=== PATIENT | male | born 1945 | race Caucasian/White ===

== ENCOUNTER → 2021-01-18 11:58 | Outpatient (BNVA) | payer MEDICARE, OTHER, SELFPAY | PROVIDERS: Family Provider Family Medicine; Visit Provider Nurse Practitioner | DX: Z13.6 Encounter for screening for cardiovascular disorders (principal); E55.9 Vitamin D deficiency, unspecified; Z79.899 Other long term (current) drug therapy | CPT/HCPCS: 80053; 80061; 82306; 83721; 84443; 85025 ==

== ENCOUNTER → 2021-04-15 10:53 | Outpatient (BNVA) | payer MEDICARE, OTHER, SELFPAY | PROVIDERS: Family Provider Family Medicine; Visit Provider Nurse Practitioner Family | DX: I49.3 Ventricular premature depolarization (principal); E78.2 Mixed hyperlipidemia | CPT/HCPCS: 80053; 80061; 83721; 84439; 84443 ==

== ENCOUNTER → 2021-07-30 11:02 | Outpatient (BNVA) | payer MEDICARE, OTHER, SELFPAY | PROVIDERS: Family Provider Family Medicine; Visit Provider Nurse Practitioner | DX: E78.2 Mixed hyperlipidemia (principal); Z12.5 Encounter for screening for malignant neoplasm of prostate | CPT/HCPCS: 80053; 84443; G0103 ==

== ENCOUNTER → 2021-08-09 08:29 | Outpatient (BNVA) | payer MEDICARE, OTHER, SELFPAY | PROVIDERS: Family Provider Family Medicine; Visit Provider Nurse Practitioner | DX: R97.20 Elevated prostate specific antigen [PSA] (principal) | CPT/HCPCS: 84153 ==

== ENCOUNTER 2021-10-21 18:37 | Emergency (ER) | payer OTHER, SELFPAY ==
[2021-10-21 19:06] VITALS: BP 181/72; PULSE 70; RESP 16; TEMP 36.9; O2SAT 98; BMI 30.8
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
== END 2021-10-21 21:31 | disposition home or self-care (01) ==
PROVIDERS: Emergency Provider Nurse Practitioner Family
DX: S09.90XA Unspecified injury of head, initial encounter (principal); R07.81 Pleurodynia; V43.52XA Car driver injured in collision with other type car in traffic accident, initial encounter
CPT/HCPCS: 70450; 71101; 72125; 99283

== ENCOUNTER → 2021-12-20 08:13 | Outpatient (BNVA) | payer MEDICARE, OTHER, SELFPAY | PROVIDERS: Visit Provider Internal Medicine Cardiovascular Disease | DX: Z79.899 Other long term (current) drug therapy (principal) | CPT/HCPCS: 80076; 84439; 84443 ==

== ENCOUNTER → 2022-01-24 09:53 | Outpatient (BNVA) | payer MEDICARE, OTHER, SELFPAY | PROVIDERS: Visit Provider Nurse Practitioner | DX: R97.20 Elevated prostate specific antigen [PSA] (principal); E78.2 Mixed hyperlipidemia; Z78.9 Other specified health status; E66.9 Obesity, unspecified | CPT/HCPCS: 80053; 80061; 83721 ==

== ENCOUNTER → 2022-04-13 09:12 | Outpatient (BNVA) | payer MEDICARE, OTHER, SELFPAY | PROVIDERS: Referring Provider Urology; Visit Provider Urology | DX: R97.20 Elevated prostate specific antigen [PSA] (principal) | CPT/HCPCS: 84153 ==

== ENCOUNTER → 2022-05-18 10:36 | Outpatient (BNVA) | payer MEDICARE, OTHER, SELFPAY | PROVIDERS: PCP Nurse Practitioner; Referring Provider Nurse Practitioner; Visit Provider Nurse Practitioner | DX: R42 Dizziness and giddiness (principal) | CPT/HCPCS: 99204 ==

== ENCOUNTER 2022-06-28 09:56 | Outpatient (CLI) | payer MEDICARE, OTHER, SELFPAY ==
--- NOTE | 2022-06-28 11:00 | MR_ITS ---
WS: [id number] MRA CAROTID ARTERIES HISTORY: R42 - Dizziness and giddiness COMPARISON: None available. TECHNIQUE: Noncontrast imaging of the carotid arteries is performed. Right: No occlusions or stenosis involving the mid cervical carotid artery. Bifurcation is intact. Pr oximal and distal carotid arteries are not well visualized. Left: No occlusions or stenosis involving the mid cervical carotid artery. Bifurcation is intact. The proximal and distal carotid arteries are not well visualized. Vertebral Arteries: Patent. No occlusions. MR/MR angio neck wo con [id number] IMPRESSION: 1. Very limited evaluation of the carotid arteries. Noncontrast evaluation per formed. 2. No high-grade cervical carotid artery stenosis or occlusion.
== END 2022-06-28 09:57 | disposition home or self-care (01) ==
LOC: RAD 09:56
PROVIDERS: PCP Nurse Practitioner; Visit Provider Nurse Practitioner
DX: R42 Dizziness and giddiness (principal)
CPT/HCPCS: 70547

== ENCOUNTER 2022-07-05 09:19 | Outpatient (CLI) | payer MEDICARE, OTHER, SELFPAY ==
--- NOTE | 2022-07-05 09:30 | MR_ITS ---
WS: [id number] MRI HEAD WITH CONTRAST TECHNIQUE: Sagittal T1, T2 axial, T2 axial FLAIR, axial susceptibility weighted imaging, axial diffus ion weighted images, and coronal T2 images were obtained. Pre and post-T1 axial and post T1 coronal i mages. ADC and FSPGR images. CLINICAL INFORMATION: R42 - Dizziness and giddiness COMPARISON: CT head FINDINGS: No evidence of restricted diffusion to suggest acute ischemia. Ventricular system and basal cisterns are patent. Mild small vessel changes. Mild parenchymal volume loss. Normal posterior fossa. Normal v ascular flow voids at the skull base. No extra-axial fluid collections. No evidence of mass or mass e ffect. Several tiny chronic lacunar infarcts in the RIGHT caudate. Paranasal sinuses and mastoid air cells a re well aerated. Normal posterior nasopharynx. Normal parapharyngeal fat. No hemosiderin on the susce ptibly weighted images. Optic chiasm and pituitary infundibulum. No abnormal gadolinium enhancement. MR/MR head wo/w con [id number] IMPRESSION: 1. No evidence of restricted diffusion to suggest acute ischemia. 2. Mild small vessel changes with mild parenchymal volume loss. 3. Tiny chronic lacunar infarcts in the RIGHT caudate. 4. No hemosiderin on susceptibly weighted images. 5. No abnormal gadolinium enhancement.
--- NOTE | 2022-07-05 10:15 | MR_ITS ---
WS: [id number] MRA HEAD TECHNIQUE: Axial 3-D TOF images obtained with axial images and axial, sagittal, and coronal 2-D refor matted images. CLINICAL INFORMATION: R42 - Dizziness and giddines COMPARISON: CT head 6 FINDINGS: Distal vertebral arteries are patent. Basilar artery is patent. Normal vascularity to the [employer] territo ry bilaterally. Both ICAs are patent at the skull base. Normal vascularity to the SUZANNE and MCA territories bilaterally . No evidence of high-grade stenosis or aneurysm. Small LEFT A1 segment. MR/MR angio head con [id number] IMPRESSION: Normal intracranial MRA.
[2022-07-05] MEDS: gadobenate dimeglumine 20 mL vial IV (10:58)
== END 2022-07-05 09:20 | disposition home or self-care (01) ==
LOC: RAD 09:22
PROVIDERS: PCP Nurse Practitioner; Visit Provider Nurse Practitioner
DX: R42 Dizziness and giddiness (principal); I63.81 Other cerebral infarction due to occlusion or stenosis of small artery
CPT/HCPCS: 70544; 70553; A9577

== ENCOUNTER → 2022-07-18 09:18 | Outpatient (BNVA) | payer MEDICARE, OTHER, SELFPAY | PROVIDERS: PCP Nurse Practitioner; Visit Provider Nurse Practitioner | DX: R97.20 Elevated prostate specific antigen [PSA] (principal); E78.2 Mixed hyperlipidemia | CPT/HCPCS: 80053; 80061; 83721 ==

== ENCOUNTER 2022-08-22 11:21 | Inpatient (IN) | payer MEDICARE, OTHER, SELFPAY ==
[2022-08-22] VITALS (32 sets, daily range): BP systolic 108–152; BP diastolic 55–101; PULSE 88–126; RESP 11–26; TEMP 36.3–36.9; O2SAT 72–100; BMI 30.8
--- NOTE | 2022-08-22 11:26 | XR_ITS ---
WS: [id number] Portable AP upright chest, 08/22/2022 Clinical Data: dyspnea/cough Comparison: PA chest with left rib detail, 10/21/2021 Findings: No nodules, masses or effusions are seen. The heart is normal. The pulmonary vascularity is not increased. No pneumonia or pneumothorax is seen. The aortic arch and descending thoracic aorta s how mild tortuosity. XR/XR chest 1V portable [id number] Impression: Atherosclerosis.
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
--- NOTE | 2022-08-22 11:55 | CT_ITS ---
WS: [id number] CT ABDOMEN AND PELVIS NONCONTRAST HISTORY: abd pain TECHNIQUE: Imaging performed through the abdomen and pelvis. Coronal and sagittal reformats are submi tted. All CT scans at [facility] use at least one of these dose optimization techniques: auto mated exposure control; mA and/or kV adjustment per patient size (includes targeted exams where dose is matched to clinical indication); or iterative reconstruction. DLP: 927.69 mGy.cm COMPARISON: 10/04/2015 Lower thorax: Areas of consolidation and dependent changes at the lung bases bilaterally. Mild hazy a ttenuation. Normal size heart. Small hiatal hernia. Liver: Normal size liver. Stable 7 mm low-attenuation nodule in the posterior RIGHT lobe of the liver . No mass or bile duct dilatation. Gallbladder: Prior cholecystectomy. Pancreas: Atrophied. Spleen: Normal size spleen with granulomata. Several splenules LEFT upper abdomen. Adrenal glands: Normal. No mass. Right kidney: Normal size kidney. Upper pole simple cyst measures 4.1 x 3.8 cm. No obstruction of the kidney. Left kidney: Mild perinephric stranding. Very small cortical hypodensities. Mild perinephric strandin g. Aorta: Mild atherosclerosis abdominal aorta with no aneurysm. No free fluid, intraperitoneal air or significant lymphadenopathy. GI tract: Normally distended stomach. Mild increased fluid within the distal small bowel. Near the ce cum there is focal asymmetric wall thickening the colon which is very subtle. This may be narrowing t he lumen causing a mild obstruction. This can be further evaluated by colonoscopy. Scattered distal c olon diverticular disease. There is also increased fluid in the distal colon. Abdominal wall: Small umbilical hernia contains fat only. Small amount of fluid or nodule at the umbi lical hernia site. Pelvis: Well-distended urinary bladder. Marked enlargement of the prostate gland. Osseous structures: Bilateral L5 pars defects. CT/CT abdomen pelvis wo con [id number] IMPRESSION: 1. Very mild asymmetric wall thickening involving the cecum. Slight increase f luid in the distal small bowel. This can be further evaluated by colonoscopy to exclude a neoplasm. There are no adjacent lymph nodes. No high-grade obstructi on. 2. Increase fluid in the distal colon consider gastroenteritis. No wall thicke darrian. 3. Prior cholecystectomy. 4. Bilateral lower lobe opacifications at the lung bases consistent with pneum onia, LEFT greater than RIGHT.
[2022-08-22 11:57] LABS: Basophils % 0.2 %; Eosinophils % 0.1 %; Hematocrit 51.9 % (42.0-52.0); Hemoglobin 15.9 g/dL (11.7-16.6); Lymphocytes # 1.6 10^3/uL (0.8-4.8); Lymphocytes % 8.9 %; Mean Corpuscular HGB Conc 30.6 g/dL (30.0-36.0); Mean Corpuscular Hemoglobin 30.1 pg (28.0-34.0); Mean Corpuscular Volume 98.3 fl (80-94); Mean Platelet Volume 11.2 fL (7.4-10.4); Monocytes # 0.5 10^3/uL (0.2-0.9); Monocytes % 2.6 %; Neutrophils # 15.82 10^3/uL (1.8-7.7); Neutrophils % 87.9 %; Nucleated Red Blood Cells % 0 %; Platelet Count 338 10^3/cmm (130-400); Red Blood Count 5.28 10^6/uL (4.1-5.3); Red Cell Distribution Width 12.6 % (12.1-15.1)
[2022-08-22] MEDS: sodium chloride 0.9% 1,000 ML 999 ML IV (12:07)
[2022-08-22] MEDS: ondansetron 2 mg/ML SDV 2 mL 4 MG IVP (12:07)
[2022-08-22 12:13] LABS: Alanine Aminotransferase 19 U/L (0-41); Albumin Level 4.5 g/dL (3.5-5.2); Alkaline Phosphatase 163 U/L (40-130); Anion Gap 19.6 (5-19); Aspartate Amino Transferase 22 U/L (0-40); Blood Urea Nitrogen 26 mg/dL (8-23); Calcium 9.5 mg/dL (8.5-10.5); Carbon Dioxide 19 mmol/L (22-29); Chloride 102 mmol/L (98-107); Globulin 4.2 g/dL (1.3-4.6); Glucose 174 mg/dL (65-115); Osmolality Calculated 293 mOsm/kg (285-295); Potassium 3.6 mmol/L (3.5-5.1); Sodium 137 mmol/L (136-145); Total Bilirubin 0.4 mg/dL (0.15-1.2); Total Protein 8.7 g/dL (6.6-8.7)
[2022-08-22 12:55] LABS: Magnesium 2.2 mg/dL (1.7-2.3)
[2022-08-22 14:07] LABS: Urine Appearance SL Hazy (CLEAR); Urine Color Dark Yellow (Yellow); pH Urine 5 (5-7)
[2022-08-22 14:08] LABS: Add Urine Microscopic? YES; Bilirubin Urine Neg (Negative); Blood Urine Neg (Negative); Glucose Urine UA Norm (Normal); Ketones Urine Negative (Negative); Leukocyte Esterase Urine Negative (Negative); Nitrate Urine Negative (Negative); Protein Urine Trace (Negative); Urobilinogen Urine 1 mg/dL (Negative)
[2022-08-22 14:09] LABS: Bacteria Urine TRACE /hpf; Mucus Urine 2+ /hpf
[2022-08-22 14:10] LABS: Add Urine Culture? No
[2022-08-22] MEDS: cefTRIAXone 1,000 MG in sodium chloride 0.9% (plus) 50 ML 100 MG IV (14:16)
[2022-08-22 14:37] LABS: Lactic Sepsis W/Reflex 4.1 mmol/L (0.5-2.2)
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
[2022-08-22] MEDS: azithromycin 500 MG in sodium chloride 0.9% 250 ML 250 MG IV (14:59)
[2022-08-22 15:53] LABS: Reflex Lactate Order REFLEX LACTIC ORDERD
--- NOTE | 2022-08-22 16:21 | ECG_ITS ---
[facility] Test Date: 2022-08-22 Pat Name: Farrukh Lay Department: Room: 262 Gender: Male [employer] Programs Director: : 1945 Requested By: Alie Lomax Order Number: [id number] Mark MD: Dereje Rogers M.D. Measurements Intervals [place] Rate: 92 P: 32 IL: 176 QRS: 23 QRSD: 100 T: 28 QT: 355 QTc: 441 Interpretive Statements SINUS RHYTHM WITH OCCASIONAL VENTRICULAR PREMATURE COMPLEXES No previous ECG available for comparison Electronically Signed On 08-22-2022 17:09:08 CDT by Dereje Rogers M.D. [id number]
[2022-08-22 18:21] LABS: Lactic Acid level (Lactate) 2.5 mmol/L (0.5-2.2)
[2022-08-22] MEDS: sodium chlor 0.9% + KCl 20 mEq 20 MEQ/1,000 ML BAG 100 MEQ IV (20:18)
[2022-08-22] MEDS: pantoprazole 40 mg SDV IVP (20:21)
[2022-08-22] MEDS: metroNIDAZOLE IV 500 MG/100 ML PREMIX 100 MG IV (20:25)
--- NOTE | 2022-08-22 20:44 | PC.NURSE ---
Lab called to notify this nurse that the blood cultures ordered had already been completed and are a send out lab to [facility] at this time.
[2022-08-22 20:58] LABS: Procalcitonin 0.15 ng/mL (0-0.5)
[2022-08-23] VITALS (7 sets, daily range): BP systolic 104–157; BP diastolic 62–78; PULSE 75–92; RESP 14–20; TEMP 36.8–37.6; O2SAT 90–97
[2022-08-23 05:05] LABS: Basophils % 0.1 %; Hematocrit 35.8 % (42.0-52.0); Hemoglobin 11.5 g/dL (11.7-16.6); Lymphocytes # 1.8 10^3/uL (0.8-4.8); Lymphocytes % 10.1 %; Mean Corpuscular HGB Conc 32.1 g/dL (30.0-36.0); Mean Corpuscular Hemoglobin 30.1 pg (28.0-34.0); Mean Corpuscular Volume 93.7 fl (80-94); Mean Platelet Volume 11.7 fL (7.4-10.4); Monocytes # 0.8 10^3/uL (0.2-0.9); Monocytes % 4.5 %; Neutrophils # 14.82 10^3/uL (1.8-7.7); Neutrophils % 84.9 %; Nucleated Red Blood Cells % 0 %; Platelet Count 191 10^3/cmm (130-400); Red Blood Count 3.82 10^6/uL (4.1-5.3); Red Cell Distribution Width 12.8 % (12.1-15.1); White Blood Count 17.5 10^3/uL (4.0-10.0)
[2022-08-23] MEDS: metroNIDAZOLE IV 500 MG/100 ML PREMIX 100 MG IV ×3 (05:20→21:43)
[2022-08-23 05:24] LABS: Lactate (Lactic Acid level) 1.6 mmol/L (0.5-2.2)
[2022-08-23 05:26] LABS: Anion Gap 14.1 (5-19); Blood Urea Nitrogen 24 mg/dL (8-23); Carbon Dioxide 18 mmol/L (22-29); Chloride 112 mmol/L (98-107); Glucose 111 mg/dL (65-115); Magnesium 1.8 mg/dL (1.7-2.3); Osmolality Calculated 295 mOsm/kg (285-295); Phosphorus 2.5 mg/dL (2.5-4.5); Potassium 4.1 mmol/L (3.5-5.1); Sodium 140 mmol/L (136-145)
[2022-08-23 05:46] LABS: Slide Review Slide Review Perform
[2022-08-23 09:03] LABS: Hemoglobin 11.3 g/dL (11.7-16.6)
[2022-08-23] MEDS: sodium chlor 0.9% + KCl 20 mEq 20 MEQ/1,000 ML BAG 100 MEQ IV ×2 (09:32→20:41)
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
[2022-08-23] MEDS: heparin 5,000 unit/mL INJ 1 mL 5000 UNIT SUBCUT (16:56)
[2022-08-23] MEDS: pantoprazole DR 40 mg Tablet PO (17:03)
[2022-08-23] MEDS: cefTRIAXone 1,000 MG in sodium chloride 0.9% (plus) 50 ML 100 MG IV (20:42)
[2022-08-24] VITALS (8 sets, daily range): BP systolic 139–163; BP diastolic 70–83; PULSE 71–96; RESP 16–18; TEMP 36.5–37.1; O2SAT 95–97
[2022-08-24] MEDS: metroNIDAZOLE IV 500 MG/100 ML PREMIX 100 MG IV (04:26)
[2022-08-24] MEDS: heparin 5,000 unit/mL INJ 1 mL 5000 UNIT SUBCUT (04:26)
[2022-08-24 05:45] LABS: Basophils % 0.1 %; Eosinophils # 0.1 10^3/uL (0.0-0.8); Eosinophils % 0.7 %; Hematocrit 34.1 % (42.0-52.0); Hemoglobin 11.4 g/dL (11.7-16.6); Lymphocytes # 1.7 10^3/uL (0.8-4.8); Lymphocytes % 11.3 %; Mean Corpuscular HGB Conc 33.4 g/dL (30.0-36.0); Mean Corpuscular Hemoglobin 31.2 pg (28.0-34.0); Mean Corpuscular Volume 93.4 fl (80-94); Mean Platelet Volume 11.3 fL (7.4-10.4); Monocytes # 0.8 10^3/uL (0.2-0.9); Monocytes % 4.9 %; Neutrophils # 12.65 10^3/uL (1.8-7.7); Neutrophils % 82.4 %; Nucleated Red Blood Cells % 0 %; Platelet Count 178 10^3/cmm (130-400); Red Blood Count 3.65 10^6/uL (4.1-5.3); Red Cell Distribution Width 12.7 % (12.1-15.1); White Blood Count 15.4 10^3/uL (4.0-10.0)
[2022-08-24 06:03] LABS: Alanine Aminotransferase 15 U/L (0-41); Albumin Level 3.3 g/dL (3.5-5.2); Alkaline Phosphatase 95 U/L (40-130); Anion Gap 15.7 (5-19); Aspartate Amino Transferase 19 U/L (0-40); Blood Urea Nitrogen 12 mg/dL (8-23); Calcium 8.5 mg/dL (8.5-10.5); Carbon Dioxide 20 mmol/L (22-29); Chloride 106 mmol/L (98-107); Creatinine Clr Calc Pharmacy 77.1084; Globulin 3.3 g/dL (1.3-4.6); Glucose 96 mg/dL (65-115); Osmolality Calculated 286 mOsm/kg (285-295); Potassium 3.7 mmol/L (3.5-5.1); Sodium 138 mmol/L (136-145); Total Bilirubin 0.8 mg/dL (0.15-1.2); Total Protein 6.6 g/dL (6.6-8.7)
[2022-08-24] MEDS: pantoprazole DR 40 mg Tablet PO (07:52)
[2022-08-24] MEDS: sodium chlor 0.9% + KCl 20 mEq 20 MEQ/1,000 ML BAG 100 MEQ IV (09:52)
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
== END 2022-08-24 13:40 | disposition home or self-care (01) | DRG 392 ==
LOC: ER 12:54 → MEDSURG 14:35
PROVIDERS: Family Medicine; Admitting Provider Hospitalist; Emergency Provider Family Medicine; PCP Nurse Practitioner; Visit Provider Student in an Organized Health Care Education/Training Program
DX: K52.9 Noninfective gastroenteritis and colitis, unspecified (principal); N17.9 Acute kidney failure, unspecified; Z79.82 Long term (current) use of aspirin; I48.0 Paroxysmal atrial fibrillation; N40.1 Benign prostatic hyperplasia with lower urinary tract symptoms; R97.20 Elevated prostate specific antigen [PSA]; I25.10 Atherosclerotic heart disease of native coronary artery without angina pectoris; E78.2 Mixed hyperlipidemia; I10 Essential (primary) hypertension; E66.9 Obesity, unspecified; Z68.31 Body mass index [BMI] 31.0-31.9, adult; R42 Dizziness and giddiness; E86.0 Dehydration
CPT/HCPCS: 36415; 71045; 74176; 80048; 80053; 81001; 83605; 83735; 84100; 84145; 85018; 85025; 87040; 93005; 96365; 96366; 96367; 96372; 96375; 99285; C9113; J0456; J0696; J1644; J2405; J3480; J3490; J7030; J7050

== ENCOUNTER → 2022-09-01 10:56 | Outpatient (BNVA) | payer MEDICARE, OTHER, SELFPAY | PROVIDERS: PCP Nurse Practitioner; Visit Provider Nurse Practitioner | DX: R93.3 Abnormal findings on diagnostic imaging of other parts of digestive tract (principal); R91.8 Other nonspecific abnormal finding of lung field; J18.9 Pneumonia, unspecified organism; N17.9 Acute kidney failure, unspecified | CPT/HCPCS: 80053; 85025 ==

== ENCOUNTER 2022-09-08 08:26 | Outpatient (CLI) | payer MEDICARE, OTHER, SELFPAY ==
--- NOTE | 2022-09-08 08:37 | XR_ITS ---
WS: [id number] XR chest 2V* [id number] REASON FOR EXAM: R91.8 - Other nonspecific abnormal finding of lung field FINDINGS: There are interstitial reticular and patchy groundglass densities in both lower lobes. These findings are not readily identifiable on the chest x-ray of 08/22/[address] scan of the abdomen and pelvis that same day, which included the lung bases, there was considerable opacity in both lower merle ngs. No other new finding or interval change. XR/XR chest 2V* [id number] IMPRESSION: Bilateral lower lung opacities which likely are resolving. Resolving pulmonary edema versus resolving pneumonitis.
== END 2022-09-08 08:27 | disposition home or self-care (01) ==
PROVIDERS: PCP Nurse Practitioner; Visit Provider Nurse Practitioner
DX: R91.8 Other nonspecific abnormal finding of lung field (principal)
CPT/HCPCS: 71046

== ENCOUNTER → 2022-09-28 13:23 | Outpatient (BNVA) | payer MEDICARE, OTHER, SELFPAY | PROVIDERS: PCP Nurse Practitioner; Visit Provider Surgery | DX: Z12.11 Encounter for screening for malignant neoplasm of colon (principal) | CPT/HCPCS: 99024; 99203 ==

== ENCOUNTER 2022-10-26 07:09 | Day surgery (SDC) | payer MEDICARE, OTHER, SELFPAY ==
[2022-10-24 16:05] VITALS: BMI 30.8
[2022-10-26 07:24] VITALS: BP 141/87; PULSE 67; RESP 18; TEMP 36.2; O2SAT 98
[2022-10-26] MEDS: sodium chloride 0.9% 1,000 ML 30 ML IV (07:37)
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
--- NOTE | 2022-10-26 09:01 | W.PM.OPSUD ---
Surgery/Procedure H&P Update DATE OF PROCEDURE: October 26, 2022 DATE H&P PERFORMED: 09/28/22 H&P UPDATE INFORMATION: I have reviewed H&P completed within last 30 days, I have examined patient prior to procedure and No changes to prior documentation PREOP DIAGNOSIS: screening PLANNED PROCEDURE: Operation Date: 10/26/22 08:30 Proposed Procedures p [id number] colon Z12.11(Not Applicable) - Milton Enriquez DO
[2022-10-26 09:23] VITALS: BP 102/63; PULSE 60; RESP 16; TEMP 36.3; O2SAT 97
[2022-10-26 09:34] VITALS: BP 119/70; PULSE 62; RESP 16; O2SAT 96
[2022-10-26 09:45] VITALS: BP 120/79; PULSE 57; RESP 16; O2SAT 96
--- NOTE | 2022-10-26 14:00 | ANE.PACU2 ---
Inpatient post-anesthesia follow up: Airway intact: Yes Vital signs: Temperature 97.4 F Pulse Rate 57 Respiratory Rate 16 Blood Pressure 120/79 Pulse Oximetry 96 Oxygen Delivery Me thod Room Air Oxygen Flow Rate 2 Fraction of Inspir ed Oxygen Hydration adequate: Yes Nausea and vomiting: No Pain level: 2 Mental status: Baseline
== END 2022-10-26 10:10 | disposition home or self-care (01) ==
PROVIDERS: PCP Nurse Practitioner; Visit Provider Surgery
PROC: 0DJD8ZZ Inspection of Lower Intestinal Tract, Via Natural or Artificial Opening Endoscopic (ICD-10-PCS; CPT 45378; principal; 2022-10-26 08:30)
DX: Z12.11 Encounter for screening for malignant neoplasm of colon (principal); D12.8 Benign neoplasm of rectum; K62.6 Ulcer of anus and rectum; K21.9 Gastro-esophageal reflux disease without esophagitis; I25.10 Atherosclerotic heart disease of native coronary artery without angina pectoris; I12.9 Hypertensive chronic kidney disease with stage 1 through stage 4 chronic kidney disease, or unspecified chronic kidney disease; N18.9 Chronic kidney disease, unspecified; E78.2 Mixed hyperlipidemia; E66.9 Obesity, unspecified; Z68.30 Body mass index [BMI] 30.0-30.9, adult; Z79.82 Long term (current) use of aspirin; Z86.718 Personal history of other venous thrombosis and embolism
CPT/HCPCS: 45380; 45385; 88305; J2704; J7030

== ENCOUNTER → 2022-11-16 17:23 | Outpatient (BNVA) | payer MEDICARE, OTHER, SELFPAY | PROVIDERS: PCP Nurse Practitioner; Visit Provider Surgery | DX: Z09 Encounter for follow-up examination after completed treatment for conditions other than malignant neoplasm (principal) | CPT/HCPCS: 99212 ==

== ENCOUNTER → 2023-01-05 08:35 | Outpatient (BNVA) | payer MEDICARE, OTHER, SELFPAY | PROVIDERS: PCP Nurse Practitioner; Visit Provider Nurse Practitioner | DX: E66.9 Obesity, unspecified (principal); E78.2 Mixed hyperlipidemia | CPT/HCPCS: 80053; 80061; 83721 ==

== ENCOUNTER → 2023-01-10 14:38 | Outpatient (BNVA) | payer MEDICARE, OTHER, SELFPAY | PROVIDERS: PCP Nurse Practitioner; Visit Provider Psychiatry & Neurology Neurology | DX: R42 Dizziness and giddiness (principal) | CPT/HCPCS: 99203 ==

== ENCOUNTER → 2023-01-23 13:18 | Outpatient (BNVA) | payer MEDICARE, OTHER, SELFPAY | PROVIDERS: PCP Nurse Practitioner; Visit Provider Otolaryngology | DX: H61.22 Impacted cerumen, left ear (principal); R42 Dizziness and giddiness | CPT/HCPCS: 69210; 99203; 99204 ==

== ENCOUNTER → 2023-06-19 08:14 | Outpatient (BNVA) | payer MEDICARE, OTHER, SELFPAY | PROVIDERS: PCP Nurse Practitioner; Visit Provider Nurse Practitioner | DX: E66.9 Obesity, unspecified (principal); E78.2 Mixed hyperlipidemia | CPT/HCPCS: 80053; 80061; 83721 ==

== ENCOUNTER → 2023-06-26 08:59 | Outpatient (BNVA) | payer MEDICARE, OTHER, SELFPAY | PROVIDERS: PCP Nurse Practitioner; Visit Provider Nurse Practitioner | DX: K21.9 Gastro-esophageal reflux disease without esophagitis (principal) | CPT/HCPCS: 86003 ==

== ENCOUNTER → 2023-10-09 08:25 | Outpatient (BNVA) | payer MEDICARE, OTHER, SELFPAY | PROVIDERS: PCP Nurse Practitioner; Visit Provider Nurse Practitioner | DX: E66.9 Obesity, unspecified (principal); E78.2 Mixed hyperlipidemia | CPT/HCPCS: 80061; 83721 ==

== ENCOUNTER → 2023-12-04 08:04 | Outpatient (BNVA) | payer MEDICARE, OTHER, SELFPAY | PROVIDERS: PCP Nurse Practitioner; Visit Provider Nurse Practitioner | DX: E78.2 Mixed hyperlipidemia (principal); E66.9 Obesity, unspecified | CPT/HCPCS: 80053; 80061; 83721; 85025 ==

== ENCOUNTER → 2023-12-11 09:14 | Outpatient (BNVA) | payer MEDICARE, OTHER, SELFPAY | PROVIDERS: PCP Nurse Practitioner; Visit Provider Nurse Practitioner | DX: J30.89 Other allergic rhinitis (principal) | CPT/HCPCS: 86003; 86008 ==

== ENCOUNTER → 2024-06-11 08:04 | Outpatient (BNVA) | payer MEDICARE, OTHER, SELFPAY | PROVIDERS: PCP Nurse Practitioner; Visit Provider Nurse Practitioner | DX: E78.2 Mixed hyperlipidemia (principal) | CPT/HCPCS: 80053; 80061; 85025 ==

== ENCOUNTER → 2024-12-20 08:26 | Outpatient (BNVA) | payer MEDICARE, OTHER, SELFPAY | PROVIDERS: PCP Nurse Practitioner; Visit Provider Nurse Practitioner | DX: I10 Essential (primary) hypertension (principal) | CPT/HCPCS: 80053; 80061; 83721 ==

== ENCOUNTER → 2024-12-26 09:57 | Outpatient (BNVA) | payer MEDICARE, OTHER, SELFPAY | PROVIDERS: PCP Nurse Practitioner; Visit Provider Nurse Practitioner | DX: E04.9 Nontoxic goiter, unspecified (principal) | CPT/HCPCS: 84439; 84443; 84481 ==

== ENCOUNTER 2025-01-01 12:10 | Outpatient (CLI) | payer MEDICARE, OTHER, SELFPAY ==
--- NOTE | 2025-01-01 12:45 | US_ITS ---
WS: [id number] THYROID ULTRASOUND HISTORY: E04.9 - Nontoxic goiter, unspecified COMPARISON: None available. Right lobe: 1.3 cm x 0.8 cm x 3.3 cm (w x ap x l). Volume: 1.7 cm3. Normal size and echotexture. No significant are dominant nodules are present. Left lobe: 1.1 cm x 1.4 cm x 3.9 cm (w x ap x l). Volume: 3.0 cm3. Normal size and echotexture. No significant or dominant nodules are present. Isthmus: 0.4 cm. US/US thyroid [id number] IMPRESSION: Normal thyroid ultrasound. No ultrasound evidence for thyromegaly or nodules.
== END 2025-01-01 12:11 | disposition home or self-care (01) ==
LOC: RAD 12:11
PROVIDERS: PCP Nurse Practitioner; Visit Provider Nurse Practitioner
DX: E04.9 Nontoxic goiter, unspecified (principal)
CPT/HCPCS: 76536